=== PATIENT | male | born 1965 | race Caucasian/White ===

== ENCOUNTER 2018-08-21 14:24 | Emergency (ER) | payer BC, OTHER ==
[2018-08-21 14:34] VITALS: BMI 25.2
--- NOTE | 2018-08-21 14:50 | PDOC ---
History of Present Illness - General Chief Complaint: Pain Stated Complaint: PCP SENT/SWELLING Time Seen by Provider: 08/21/18 14:46 - History of Present Illness Initial Comments: 08/21/18 15:07 The patient is a 53 year old male with a history of HTN who presents for evaluation of right testicular pain. The patient states that he has noted worsening right testicular swelling over the past 2 weeks and noted some pain over the past 1-2 days prompting his presentation to the ED for further evaluation. He denies similar symptoms in the past and denies any discharge, burning with urination, fevers, chills, SOB, chest pain, nausea, vomiting, abdominal pain, or changes with bowel movements. Past History - Past Medical History Allergies/Adverse Reactions: Allergies Allergy/AdvReac Type Severity Reaction Status Date / Time No Known Allergies Allergy Verified 08/21/18 14:32 Home Medications: Ambulatory Orders Amlodipine Besylate/Benazepril [Lotrel 5-10 mg Capsule] 1 each PO DAILY Cephalexin Monohydrate [Keflex -] 500 mg PO BID #14 capsule 08/21/18 COPD: No HTN: Yes - Suicide/Smoking/Psychosocial Hx Smoking History: Never smoked Review of Systems - Review of Systems Comments:: 08/21/18 15:08 Constitutional: No fevers, chills, fatigue, malaise HEENT: No Rhinorrhea, nasal congestion, visual changes Cardiovascular: No chest pain, syncope, palpitations, lightheadedness Respiratory: No Cough, SOB, Hemoptysis, Gastrointestinal: No Abdominal pain, Nausea, Vomiting, Constipation, Diarrhea, Melena Genitourinary: Right testicular swelling and pain. No Dysuria, Frequency, Urgency, Hesitancy, Hematuria, Flank pain Musculoskeletal: No Myalgia, arthralgia Skin: No rashes, itching, bruising, pallor Neurologic: No Headache, Dizziness, Numbness, Weakness, or Tingling Psychiatric: No Hallucinations. No SI or HI *Physical Exam - Vital Signs Last Vital Signs Temp Pulse Resp BP Pulse Ox 98.5 F 68 18 142/92 98 08/21/18 14:33 08/21/18 14:33 08/21/18 14:33 08/21/18 14:33 08/21/18 14:33 - Physical Exam Comments: 10/20/18 15:09 General Appearance: Nourished. No Apparent Distress HEENT: No Pharyngeal Erythema, Tonsillar Exudate, Tonsillar Erythema Neck: No Cervical Lymphadenopathy Respiratory/Chest: Lungs Clear, Normal Breath Sounds. No Crackles, Rales, Rhonchi, Wheezing Cardiovascular: Regular Rhythm, Regular Rate. No Murmur, Gallops, Rubs Gastrointestinal/Abdominal: Normal Bowel Sounds, Soft. No Guarding, Rebound, Tenderness Genital Exam: Mild edema noted to the right scrotum on exam with palpable fullness and tenderness to palpation along the epididimus. No discharged noted. No lesions noted. Normal left scrotal exam. Musculoskeletal: No CVA Tenderness Extremity: Normal Capillary Refill Integumentary: Normal Color, Dry, Warm Neurologic: Fully Oriented, Alert, Normal Mood/Affect, Normal Response, Medical Decision Making - Medical Decision Making 08/21/18 15:10 The patient is a 53 year old male with a history of HTN who presents for evaluation of right testicular pain. Differential includes but is not limited to: Epididimitis, Torsion, Varicocele, Hydrocele, UTI. Given the patient's history and physical exam, it is likely his symptoms are due to an epididimitis. However, we will obtain a scrotal US and UA to evaluate further. We will continue to monitor and reassess while here in the ED. 08/21/18 16:27 US is unremarkable as read by our radiologist. UA is unremarkable. Given the patient's symptoms we will treat empirically for epidydimitis with keflex. We are comfortable discharging the patient home with primary care provider follow up. We discussed the results, plan, and return precautions with the patient who voiced understanding and is agreeable with the plan. *DC/Admit/Observation/Transfer Diagnosis at time of Disposition: Testicular pain, right - Discharge Dispostion Disposition: HOME Condition at time of disposition: Stable - Prescriptions Prescriptions: Cephalexin Monohydrate [Keflex -] 500 mg PO BID #14 capsule - Referrals - Patient Instructions Printed Discharge Instructions: DI for Epididymitis Additional Instructions: Please return to the ER if you experience concerning or worsening symptoms including worsening pain, fevers, or vomiting. Your ultrasound results were normal here in the ER. We have sent prescription for antibiotics to your pharmacy that you should take as directed. Please call to schedule a follow up appointment with your primary care provider within 2-3 days to discuss your ER visit and further management of your symptoms. - Post Discharge Activity
--- NOTE | 2018-08-21 15:46 | PDOC ---
Attending Attestation - Medical Decision Making 08/21/18 16:10 Imaging: Scrotal US Reported by: Dr. Montelongo Impression: Small epididymal cysts Small bilateral hydroceles <Lizzy Garcia - Last Filed: 08/21/18 16:10> - Resident Resident Name: Rob Kidd - ED Attending Attestation I have performed the following: I have examined & evaluated the patient, The case was reviewed & discussed with the resident, I agree w/resident's findings & plan - HPI HPI: 08/21/18 16:13 The patient is a 53 year old male with a significant PMH of HTN who presents to the emergency department with right testicular swelling for the past two weeks and pain for the past two days, +urgency; no dysuria or hematuria or flank pain / no AP, n/v/d, fever or chills.. Patient reports calling his PCP today who told him to come to the ER. Patient denies any testicular discharge or dysuria. Patient reports he is sexually active with one person, spouse.. sexually active. The patient denies chest pain, shortness of breath, headache and dizziness. Allergies: NKA Past surgical history: None reported. Social history: No reported alcohol, drug, or cigarette use. 08/21/18 16:14 08/21/18 16:22 - Physicial Exam PE: 08/21/18 16:20 NAD, well appearing, MMM, nl conjunctiva, anicteric; neck supple. lungs clear, RRR, abdomen soft nontender. No CVAT. normal external genitalia, no lesions, normal testicular lie, no scrotal or testicular edema or tenderness. +cremaster reflex bilaterally. no hernia. normal penis, no discharge. APPLE x4, no focal neuro deficits. No peripheral edema. normal color for ethnicity , WWP. - Medical Decision Making 53 YOM with right testicular pain and swelling, +urinary sx including urgency; no flank or AP, n/v/d, f/c. sexually active with . vitals wnl DDx. Male : testicular torsion, hernia, orchitis, epididymitis, prostatits, UTI, pyelonephritis, appy, STD. doubt Appy or intra abdominal pathology.. Abdomen benign. exam unremarkable. no fevers, nontoxic appearing, so doubt blood stream infection or prostatitis. UA_neg for infection, f/u urine cultures Scrotal US with b/l epididymal cysts, small hydrocele; no torsion, no e/o epididymitis clinically correlating with early epididymitis vs orchitis, will rx abx, keflex x 10 days. f/u cultures. DC in stable condition. advised scrotal elevation. otc pain control with tyl/ motrin, abx x 10 days, PCP followup. reviewed results with patient, agree with impression and plan, return precautions discussed. 08/22/18 09:47 <Arielle Sylvester - Last Filed: 08/22/18 09:48>
[2018-08-21] MEDS ORDERED: CEPHALEXIN MONOHYDRATE 500 MG CAPSULE (UD) PO ONE (16:08)
[2018-08-21 16:10] LABS: URINE APPEARANCE CLEAR; URINE BILIRUBIN NEGATIVE (<2.0 mg/dL); URINE COLOR LTYELLOW; URINE GLUCOSE (UA) NEGATIVE (NEGATIVE); URINE KETONE NEGATIVE (NEGATIVE); URINE LEUK ESTERASE NEGATIVE (NEGATIVE); URINE NITRITE NEGATIVE (NEGATIVE); URINE PROTEIN NEGATIVE (NEGATIVE); URINE UROBILINOGEN NEGATIVE mg/dL (0.2-1.0)
[2018-08-21] MEDS ORDERED: CEPHALEXIN MONOHYDRATE 500 MG CAPSULE (UD) ONE (16:13)
[2018-08-21 16:44] VITALS: BP 142/97; PULSE 70; TEMP 97.7
== END 2018-08-21 16:35 | disposition home or self-care (01) ==
LOC: JER 14:24
DX: N45.1 Epididymitis (principal); I10 Essential (primary) hypertension
CPT/HCPCS: 36415; 76870-TC; 81003; 87086; 87491; 87591; 99282-25